=== PATIENT | female | born 1970 | race Caucasian/White ===

== ENCOUNTER 2018-10-02 03:21 | Emergency (ER) | payer BC ==
[2018-10-02] MEDS ORDERED: Bacitracin Oint 1 GM U/D Packet TOP ONE (03:44)
[2018-10-02] MEDS ORDERED: Lidocaine 1% 30 ML SDV INJECT ONE (03:44)
--- NOTE | 2018-10-02 03:58 | EDM.PDOC ---
ED HPI GENERAL MEDICAL PROBLEM - General Chief Complaint: Trauma Stated Complaint: HURT LEG AND ARM [id number] Time Seen by Provider: 10/02/18 03:40 Source of Information: Reports: Patient History Limitations: Reports: No Limitations, Intoxication - History of Present Illness INITIAL COMMENTS - FREE TEXT/NARRATIVE: This 48 yo female patient was brought to the ED due to a ground level fall. The patient reports she was walking home from the bar when she tripped and fell onto her left knee. The patient also has a laceration to her right forearm. Onset: Today Duration: Minutes: Location: Reports: Upper Extremity, Right, Lower Extremity, Left Quality: Reports: Other Severity: Moderate Improves with: Reports: None Worsens with: Reports: Movement Context: Reports: Trauma (fall) Associated Symptoms: Reports: No Other Symptoms - Related Data Allergies Allergy/AdvReac Type Severity Reaction Status Date / Time bee venom protein (honey bee) Allergy Anaphylactic Verified 10/02/18 03:30 Shock Home Meds: Home Meds . [No Known Home Meds] 10/02/18 [History] Past Medical History - Past Health History Medical/Surgical History: Denies Medical/Surgical History Review of Systems - Review of Systems Review Of Systems: ROS reveals no pertinent complaints other than HPI. ED EXAM, GENERAL - Physical Exam Exam: See Below Exam Limited By: No Limitations General Appearance: Alert, WD/WN, Mild Distress Eye Exam: Bilateral Eye: EOMI, Normal Inspection, PERRL Ears: Normal External Exam, Normal Canal, Hearing Grossly Normal, Normal TMs Nose: Normal Inspection, Normal Mucosa, No Blood Throat/Mouth: Normal Inspection, Normal Lips, Normal Teeth, Normal Gums, Normal Oropharynx, Normal Voice, No Airway Compromise Head: Atraumatic, Normocephalic Neck: Normal Inspection, Supple, Non-Tender, Full Range of Motion Respiratory/Chest: No Respiratory Distress, Lungs Clear, Normal Breath Sounds, No Accessory Muscle Use, Chest Non-Tender Cardiovascular: Normal Peripheral Pulses, Regular Rate, Rhythm, No Edema, No Gallop, No JVD, No Murmur, No Rub GI/Abdominal: Normal Bowel Sounds, Soft, Non-Tender, No Organomegaly, No Distention, No Abnormal Bruit, No Mass (Female) Exam: Deferred Rectal (Female) Exam: Deferred Back Exam: Normal Inspection, Full Range of Motion, NT Extremities: Leg Pain (left knee) Neurological: Alert, Oriented, CN II-XII Intact Skin Exam: Wound/Incision (right forearm) Lymphatic: No Adenopathy ED TRAUMA PROCEDURES - Laceration/Wound Repair Right Arm Lac/Wound Length In cm: 2.0 Appearance: Irregular, Mildly Contaminated Distal NVT: Neuro & Vascular Intact Anesthetic Type: Local Local Anesthesia - Lidocaine (Xylocaine): 1% Plain Local Anesthetic Volume: 3cc Skin Prep: Chlorhexidine (Hibiciens) Exploration/Debridement/Repair: Wound Explored, In a Bloodless Field, Foreign Material Removed Closed With: Sutures Suture Size: 4-0 # of Sutures: 10 Suture Type: Prolene, Interrupted, Simple Drain Placement: No Sterile Dressing Applied: Nurse Tetanus Status Addressed: Yes Complications: No Course - Vital Signs Last Recorded V/S: Last Vital Signs Temp 37.6 C 10/02/18 03:30 Pulse 98 10/02/18 03:30 Resp 20 10/02/18 03:30 BP Pulse Ox 92 L 10/02/18 03:30 - Orders/Labs/Meds Orders: Active Orders 24 hr Category Date Time Status Knee 3V Lt [CR] Urgent Exams 10/02/18 03:38 Ordered Bacitracin [Bacitracin Oint 1 GM] Med 10/02/18 03:44 Once 1 dose TOP ONETIME ONE Lidocaine 1% [Xylocaine-MPF 1%] Med 10/02/18 03:44 Once 30 ml INJECT ONETIME ONE Departure - Departure Time of Disposition: 04:29 Disposition: Home, Self-Care 01 Condition: Fair Clinical Impression: Left patella fracture Qualifiers: Encounter type: initial encounter Fracture type: closed Fracture morphology: comminuted Fracture alignment: displaced Qualified Code(s): S82.042A - Displaced comminuted fracture of left patella, initial encounter for closed fracture Laceration of right forearm Qualifiers: Encounter type: initial encounter Qualified Code(s): S51.811A - Laceration without foreign body of right forearm, initial encounter - Discharge Information *PRESCRIPTION DRUG MONITORING PROGRAM REVIEWED*: Not Applicable *COPY OF PRESCRIPTION DRUG MONITORING REPORT IN PATIENT MARLENE: Not Applicable Instructions: Laceration Care, Adult, [id number], Stitches, Wilbert, or Adhesive Wound Closure, Sutured Wound Care, [id number], Patellar Fracture, Adult Care Plan Goals: The patient was advised of the examination and x-ray results during the visit. The patient's wound margins were well approximated during the visit. The patient should keep the area clean and dry over the next 48 hours. The patient should have the sutures removed in 10-14 days. The patient was also placed in a left knee immobilizer and given a set of crutches. The patient was advised to remain non-weight bearing, ice and elevate the extremity. The patient should establish an appointment with an international trade specialist for continued evaluation and further management of her patella fracture. The patient was discharged with a script for [place] () #8 the patient should take 1 by mouth every 6 hours as needed for pain. If the patient has any additional symptoms or concerns, the patient should either return to the emergency department or visit her primary care facility. - My Orders Last 24 Hours: My Active Orders 10/02/18 03:38 Knee 3V Lt [CR] Urgent 10/02/18 03:44 Bacitracin [Bacitracin Oint 1 GM] 1 dose TOP ONETIME ONE Lidocaine 1% [Xylocaine-MPF 1%] 30 ml INJECT ONETIME ONE - Assessment/Plan Last 24 Hours: My Active Orders 10/02/18 03:38 Knee 3V Lt [CR] Urgent 10/02/18 03:44 Bacitracin [Bacitracin Oint 1 GM] 1 dose TOP ONETIME ONE Lidocaine 1% [Xylocaine-MPF 1%] 30 ml INJECT ONETIME ONE
[2018-10-02] MEDS ORDERED: Diphtheria,Pertussis(Acell),Tetanus Vaccine 0.5 ML SDV IM ONE (04:28)
[2018-10-02] MEDS ORDERED: Diphtheria,Pertussis(Acell),Tetanus Vaccine 0.5 ML SDV ONE (04:30)
== END 2018-10-02 04:42 | disposition home or self-care (01) ==
LOC: DL.ED 03:21
DX: S82.042A Displaced comminuted fracture of left patella, initial encounter for closed fracture (principal); S51.821A Laceration with foreign body of right forearm, initial encounter; L08.9 Local infection of the skin and subcutaneous tissue, unspecified; Z23 Encounter for immunization; W01.0XXA Fall on same level from slipping, tripping and stumbling without subsequent striking against object, initial encounter; Z91.030 Bee allergy status
CPT/HCPCS: 12001; 73562; 90471; 90715; 99283; J2001; 12031

== ENCOUNTER 2021-12-06 16:01 | Emergency (ER) | payer BC ==
[2021-12-06] MEDS ORDERED: Sodium Chloride 0.9% 10 ML Syringe FLUSH PRN (17:41)
[2021-12-06 19:47] LABS: CORONAVIRUS COVID-19 NAA NEGATIVE (NEGATIVE)
== END 2021-12-06 19:20 | disposition left against medical advice (07) ==
LOC: DL.ED 16:01
DX: R10.11 Right upper quadrant pain (principal); R10.12 Left upper quadrant pain; F17.210 Nicotine dependence, cigarettes, uncomplicated; Z91.030 Bee allergy status; Z20.822 Contact with and (suspected) exposure to COVID-19; Z53.8 Procedure and treatment not carried out for other reasons
CPT/HCPCS: 0240U; 36415; 71045; 80053; 81001; 82150; 83605; 83690; 84484; 85025; 86140; 93005; 99284